=== PATIENT | male | born 1935 | race Caucasian/White ===

== ENCOUNTER 2021-02-11 12:06 | Day surgery (SDC) | payer MEDICARE ==
[2021-01-20 16:37] LABS: BASOPHILS # (AUTO) 0.1 X10'3 (0-0.2); BASOPHILS % (AUTO) 1.1 % (0-1); EOSINOPHILS # (AUTO) 0.2 X10'3 (0-0.9); LYMPHOCYTES # (AUTO) 2.1 X10'3 (1.1-4.8); LYMPHOCYTES % (AUTO) 25.3 % (21-51); MEAN CORPUSCULAR HEMOGLOBIN 29.8 PG (27.0-31.0); MEAN CORPUSCULAR HGB CONC 33.6 g/dL (33.0-36.5); MEAN CORPUSCULAR VOLUME 88.6 FL (78-98); MEAN PLATELET VOLUME 8.2 FL (7.4-10.4); MONOCYTES # (AUTO) 0.7 X10'3 (0-0.9); MONOCYTES % (AUTO) 8.6 % (2-12); PRE OP HEMATOCRIT 45.2 % (42.0-52.0); PRE OP HEMOGLOBIN 15.2 g/dL (14.0-17.9); PRE OP PLATELET COUNT 263 X10'3 (140-440); RED CELL DISTRIBUTION WIDTH 13.7 % (11.5-14.5)
[2021-01-20 17:03] LABS: ALBUMIN 4.3 G/DL (3.4-5.0); ALBUMIN/GLOBULIN RATIO 1.2 (1.1-1.5); ALKALINE PHOSPHATASE 57 IU/L (46-116); BLOOD UREA NITROGEN 18 MG/DL (7-18); BUN/CREATININE RATIO 15.7 (5.4-32.0); CALCIUM 8.7 MG/DL (8.5-10.1); CHLORIDE 106 MMOL/L (99-107); CREATININE 1.15 MG/DL (0.60-1.10); PRE OP ALT 24 U/L (30-65); PRE OP ANION GAP 12 (8-16); PRE OP AST 14 U/L (10-37); PRE OP BILIRUB, TOTAL 0.4 MG/DL (0.0-1.0); PRE OP GLUCOSE 101 MG/DL (70-104); PRE OP POTASSIUM 4.1 MMOL/L (3.4-5.1); PRE OP SODIUM 143 MMOL/L (135-145); TOTAL CARBON DIOXIDE 25.2 MMOL/L (24-32); eGFR 61 ML/MIN
[~2021-02-11] VITALS: Ht 160 cm; Wt 77.6 kg
[~2021-02-11 12:06] MED LIST: AMLO10TA53 PO; APIX5TAB3 PO; OXYB5TAB16 PO; SIMV-42 PO; SYN0.088T PO; TERA2CAP4 PO; TYLENOL; VITAMIN B-12; VITAMIN D3; cefazolin/dext.iso 2gm/100ml IV ONE; famotidine 20mg tablet PO ONE; ringers solution, lacted 1,000 ML IV SCH
[2021-02-11] MEDS ORDERED: BUPIVAcaine/PF 2.5mg/ml (0.25%) 10ml vial ONE (13:38)
[2021-02-11 14:13] LABS: BASOPHILS # (AUTO) 0.1 X10'3 (0-0.2); BASOPHILS % (AUTO) 1.5 % (0-1); EOSINOPHILS # (AUTO) 0.2 X10'3 (0-0.9); LYMPHOCYTES # (AUTO) 2.5 X10'3 (1.1-4.8); LYMPHOCYTES % (AUTO) 30.3 % (21-51); MEAN CORPUSCULAR HEMOGLOBIN 29.4 PG (27.0-31.0); MEAN CORPUSCULAR HGB CONC 33.3 g/dL (33.0-36.5); MEAN CORPUSCULAR VOLUME 88.3 FL (78-98); MEAN PLATELET VOLUME 8.9 FL (7.4-10.4); MONOCYTES # (AUTO) 0.6 X10'3 (0-0.9); MONOCYTES % (AUTO) 7.8 % (2-12); NEUTROPHILS # (AUTO) 4.8 X10'3 (1.8-7.7); NEUTROPHILS % (AUTO) 58.4 % (42-75); PRE OP HEMATOCRIT 44.6 % (42.0-52.0); PRE OP HEMOGLOBIN 14.8 g/dL (14.0-17.9); PRE OP PLATELET COUNT 209 X10'3 (140-440); RED BLOOD COUNT 5.05 X10'6 (4.70-6.10); RED CELL DISTRIBUTION WIDTH 13.6 % (11.5-14.5)
[2021-02-11] MEDS ORDERED: fentaNYL/PF 50MCG/1 ML 2ML syringe ONE (14:16)
[2021-02-11] MEDS ORDERED: hydrALAZINE 20mg/ml inj. IV PRN (14:20)
[2021-02-11] MEDS ORDERED: proCHLORperazine 10 MG/2 ml inj IV PRN (14:20)
[2021-02-11] MEDS ORDERED: meperidine/PF 25mg/ml syringe IV PRN ×3 (14:20)
[2021-02-11] MEDS ORDERED: acetaminophen 1,000mg/100ml IV 100 ML IV PRN (14:20)
[2021-02-11] MEDS ORDERED: ringers solution, lacted 1,000 ML IV SCH (14:20)
[2021-02-11] MEDS ORDERED: labetalol 20mg/4ml (5mg/ml) syringe IV PRN (14:20)
[2021-02-11] MEDS ORDERED: morphine 4 MG/ML inj SYRINge IV PRN (14:20)
[2021-02-11] MEDS ORDERED: ondansetron/PF 4mg/2ml inj IV PRN (14:20)
[2021-02-11] MEDS ORDERED: morphine 2 MG/ML inj. syringe IV PRN (14:20)
[2021-02-11] MEDS ORDERED: midazolam 1 mg/ML 2ml injection ONE (14:22)
[2021-02-11 14:23] LABS: ALBUMIN 4.1 G/DL (3.4-5.0); ALBUMIN/GLOBULIN RATIO 1.1 (1.1-1.5); ALKALINE PHOSPHATASE 51 IU/L (46-116); BLOOD UREA NITROGEN 15 MG/DL (7-18); BUN/CREATININE RATIO 13.9 (5.4-32.0); CALCIUM 8.5 MG/DL (8.5-10.1); CHLORIDE 106 MMOL/L (99-107); CREATININE 1.08 MG/DL (0.60-1.10); PRE OP ALT 25 U/L (30-65); PRE OP ANION GAP 12 (8-16); PRE OP AST 19 U/L (10-37); PRE OP BILIRUB, TOTAL 0.6 MG/DL (0.0-1.0); PRE OP GLUCOSE 86 MG/DL (70-104); PRE OP POTASSIUM 4.1 MMOL/L (3.4-5.1); PRE OP SODIUM 142 MMOL/L (135-145); TOTAL CARBON DIOXIDE 24.3 MMOL/L (24-32); TOTAL PROTEIN 7.7 G/DL (6.4-8.2); eGFR 65 ML/MIN
[2021-02-11] MEDS ORDERED: LIDOcaine 1% (10mg/ml) 2ml vial ONE (14:40)
--- NOTE | 2021-02-11 16:44 | NUR ---
PTS SURGERY WAS CANCELLED BY [facility] DUE TO LACK OF PROPER TESTING MACHINES FOR COVID SWAB, PT'S IV'S WERE D/CD AND PT WAS DISCHARGED WITH ALL BELONGINGS AND TOLD TO CALL DR BRINK'S OFFICE TO RESCHEDULE
[2021-02-15] MEDS ORDERED: [UNRECOGNIZED DRUG - OTHER] PO (12:21)
== END 2021-02-11 16:52 | disposition home or self-care (01) ==
LOC: PAS 12:06
PROVIDERS: ATTEND Orthopaedic Surgery Hand Surgery
DX: G56.02 Carpal tunnel syndrome, left upper limb (principal); Z53.8 Procedure and treatment not carried out for other reasons; I10 Essential (primary) hypertension; E03.9 Hypothyroidism, unspecified; E78.00 Pure hypercholesterolemia, unspecified; N40.0 Benign prostatic hyperplasia without lower urinary tract symptoms; M19.90 Unspecified osteoarthritis, unspecified site; Z20.822 Contact with and (suspected) exposure to COVID-19; Z79.899 Other long term (current) drug therapy; Z88.0 Allergy status to penicillin; Z87.891 Personal history of nicotine dependence; Z72.89 Other problems related to lifestyle; Z98.890 Other specified postprocedural states; Z98.41 Cataract extraction status, right eye; Z98.42 Cataract extraction status, left eye; Z86.73 Personal history of transient ischemic attack (TIA), and cerebral infarction without residual deficits; Z95.5 Presence of coronary angioplasty implant and graft
CPT/HCPCS: 36415; 80053; 85025; 87635; 93005; C9803; J2001; J2250; J3010; J3490; J7120

== ENCOUNTER 2021-02-18 08:32 | Day surgery (SDC) | payer MEDICARE ==
[~2021-02-18] VITALS: Ht 160 cm; Wt 77.1 kg
[2021-02-18] VITALS (8 sets, daily range): BP systolic 132–152; BP diastolic 70–76
[~2021-02-18 08:32] MED LIST changes: +BUPIVAcaine/PF 2.5mg/ml (0.25%) 10ml vial ONE; -VITAMIN D3; +[UNRECOGNIZED DRUG - OTHER] PO
[2021-02-18] MEDS ORDERED: LIDOcaine 0.5% (5mg/ml) 50ml vial ONE (09:57)
[2021-02-18] MEDS ORDERED: ringers solution, lacted 1,000 ML IV SCH (10:50)
[2021-02-18] MEDS ORDERED: proCHLORperazine 10 MG/2 ml inj IV PRN (10:50)
[2021-02-18] MEDS ORDERED: morphine 4 MG/ML inj SYRINge IV PRN (10:50)
[2021-02-18] MEDS ORDERED: meperidine/PF 25mg/ml syringe IV PRN ×3 (10:50)
[2021-02-18] MEDS ORDERED: ondansetron/PF 4mg/2ml inj IV PRN (10:50)
[2021-02-18] MEDS ORDERED: hydrALAZINE 20mg/ml inj. IV PRN (10:50)
[2021-02-18] MEDS ORDERED: morphine 2 MG/ML inj. syringe IV PRN (10:50)
[2021-02-18] MEDS ORDERED: labetalol 20mg/4ml (5mg/ml) syringe IV PRN (10:50)
[2021-02-18] MEDS ORDERED: acetaminophen 1,000mg/100ml IV 100 ML IV PRN (10:50)
[2021-02-18] MEDS ORDERED: fentaNYL/PF 50MCG/1 ML 2ML syringe ONE (11:33)
[2021-02-18] MEDS ORDERED: midazolam 1 mg/ML 2ml injection ONE (11:35)
[2021-02-18] MEDS ORDERED: propofol inj 20 ML IV ONE (11:42)
--- NOTE | 2021-02-18 12:03 | NUR ---
Received from OR via [facility] IN STABLE CONDITION , accompanied by Anesthesiologist and [employer] report given by [employer] AND Anesthesiolgist. Addendum: 02/18/21 at 1228 by Maricruz Baldwin RN Amended: Links added.
--- NOTE | 2021-02-18 13:13 | NUR ---
PATIENT DISCHARGED FROM PACU IN STABLE CONDITION AFTER WRITTEN AND VERBAL DISCHARGE INSTRUCTION GIVEN. PATIENT GAVE VERBAL UNDERSTANDING OF INSTRUCTIONS. PATIENT LEFT FACILITY VIA WHEELCHAIR WITH RN. Addendum: 02/18/21 at 1318 by Maricruz Baldwin RN Amended: Links added.
== END 2021-02-18 13:13 | disposition home or self-care (01) ==
LOC: PAS 08:32
PROVIDERS: ATTEND Orthopaedic Surgery Hand Surgery
DX: G56.02 Carpal tunnel syndrome, left upper limb (principal); I48.91 Unspecified atrial fibrillation; I10 Essential (primary) hypertension; N40.0 Benign prostatic hyperplasia without lower urinary tract symptoms; M19.90 Unspecified osteoarthritis, unspecified site; Z98.890 Other specified postprocedural states; Z79.899 Other long term (current) drug therapy; Z98.41 Cataract extraction status, right eye; Z98.42 Cataract extraction status, left eye; Z87.891 Personal history of nicotine dependence; Z95.5 Presence of coronary angioplasty implant and graft; Z88.0 Allergy status to penicillin; Z86.73 Personal history of transient ischemic attack (TIA), and cerebral infarction without residual deficits
CPT/HCPCS: 64721; 82948; J2001; J2250; J2704; J3010; J3490; Z7506; Z7512; A4215; J7120

== ENCOUNTER 2021-03-21 06:02 | Day surgery (SDC) | payer MEDICARE ==
[2021-03-11 15:09] LABS: ALBUMIN 4.2 G/DL (3.4-5.0); ALBUMIN/GLOBULIN RATIO 1.3 (1.1-1.5); ALKALINE PHOSPHATASE 64 IU/L (46-116); BLOOD UREA NITROGEN 20 MG/DL (7-18); BUN/CREATININE RATIO 15.5 (5.4-32.0); CALCIUM 8.7 MG/DL (8.5-10.1); CHLORIDE 107 MMOL/L (99-107); CREATININE 1.29 MG/DL (0.60-1.10); PRE OP ALT 27 U/L (30-65); PRE OP ANION GAP 13 (8-16); PRE OP AST 17 U/L (10-37); PRE OP BILIRUB, TOTAL 0.7 MG/DL (0.0-1.0); PRE OP GLUCOSE 144 MG/DL (70-104); PRE OP POTASSIUM 4.3 MMOL/L (3.4-5.1); PRE OP SODIUM 145 MMOL/L (135-145); TOTAL CARBON DIOXIDE 25.5 MMOL/L (24-32); TOTAL PROTEIN 7.5 G/DL (6.4-8.2); eGFR 53 ML/MIN
[2021-03-11 15:26] LABS: BASOPHILS # (AUTO) 0.1 X10'3 (0-0.2); BASOPHILS % (AUTO) 1.2 % (0-1); EOSINOPHILS # (AUTO) 0.2 X10'3 (0-0.9); EOSINOPHILS % (AUTO) 3.1 % (0-6); LYMPHOCYTES # (AUTO) 2.1 X10'3 (1.1-4.8); LYMPHOCYTES % (AUTO) 29.2 % (21-51); MEAN CORPUSCULAR HEMOGLOBIN 29.7 PG (27.0-31.0); MEAN CORPUSCULAR HGB CONC 32.9 g/dL (33.0-36.5); MEAN CORPUSCULAR VOLUME 90.4 FL (78-98); MEAN PLATELET VOLUME 8.6 FL (7.4-10.4); MONOCYTES # (AUTO) 0.5 X10'3 (0-0.9); MONOCYTES % (AUTO) 7.4 % (2-12); NEUTROPHILS # (AUTO) 4.2 X10'3 (1.8-7.7); NEUTROPHILS % (AUTO) 59.1 % (42-75); PRE OP HEMOGLOBIN 14.8 g/dL (14.0-17.9); PRE OP PLATELET COUNT 212 X10'3 (140-440); RED BLOOD COUNT 4.98 X10'6 (4.70-6.10); RED CELL DISTRIBUTION WIDTH 13.7 % (11.5-14.5)
[~2021-03-21] VITALS: Ht 160 cm; Wt 78.8 kg
[~2021-03-21 06:02] MED LIST changes: -BUPIVAcaine/PF 2.5mg/ml (0.25%) 10ml vial ONE; -TYLENOL; -VITAMIN B-12
[2021-03-21] MEDS ORDERED: BUPIVAcaine/PF 2.5mg/ml (0.25%) 10ml vial ONE (06:48)
[2021-03-21 07:10] VITALS: BP 149/72
[2021-03-21 07:16] VITALS: BP 149/72
[2021-03-21 07:21] VITALS: BP 149/72
[2021-03-21] MEDS ORDERED: ondansetron/PF 4mg/2ml inj IV PRN (07:50)
[2021-03-21] MEDS ORDERED: morphine 4 MG/ML inj SYRINge IV PRN (07:50)
[2021-03-21] MEDS ORDERED: proCHLORperazine 10 MG/2 ml inj IV PRN (07:50)
[2021-03-21] MEDS ORDERED: ringers solution, lacted 1,000 ML IV SCH (07:50)
[2021-03-21] MEDS ORDERED: morphine 2 MG/ML inj. syringe IV PRN (07:50)
[2021-03-21] MEDS ORDERED: meperidine/PF 25mg/ml syringe IV PRN ×3 (07:50)
[2021-03-21] MEDS ORDERED: fentaNYL/PF 50MCG/1 ML 2ML syringe ONE (08:13)
[2021-03-21] MEDS ORDERED: midazolam 1 mg/ML 2ml injection ONE (08:13)
[2021-03-21] MEDS ORDERED: LIDOcaine 0.5% (5mg/ml) 50ml vial ONE (08:18)
[2021-03-21 08:45] VITALS: BP 147/83
--- NOTE | 2021-03-21 08:45 | NUR ---
Received from OR via , accompanied by Anesthesiologist and report given by Anesthesiolgist. PATIENT A&OX4, DENIES PAIN, V/S WNL, NEUROVASCULAR CHECKS INTACT, DRESSING TO RUE CDI, 20G LUE , BG 130.
[2021-03-21 08:55] VITALS: BP 139/82
[2021-03-21 09:05] VITALS: BP 141/76
--- NOTE | 2021-03-21 09:15 | NUR ---
PATIENT A&OX4, DENIES PAIN, V/S WNL, NEUROVASCULAR CHECKS INTACT, DRESSING TO RUE CDI, 2OG WILBERE D/C,. I HAVE REVIEWED D/C INSTRUCTIONS WITH PATIENT AND AND THEY HAVE VERBALIZED UNDERSTANDING. PATIENT D/C HOME WITH ALL BELONGINGS AND GAVE TRANSPORT.
== END 2021-03-21 09:15 | disposition home or self-care (01) ==
LOC: PAS 06:02
PROVIDERS: ATTEND Orthopaedic Surgery Hand Surgery
DX: G56.01 Carpal tunnel syndrome, right upper limb (principal); I10 Essential (primary) hypertension; I48.91 Unspecified atrial fibrillation; E03.9 Hypothyroidism, unspecified; N40.0 Benign prostatic hyperplasia without lower urinary tract symptoms; M19.90 Unspecified osteoarthritis, unspecified site; Z95.5 Presence of coronary angioplasty implant and graft; Z88.0 Allergy status to penicillin; Z79.899 Other long term (current) drug therapy; Z72.89 Other problems related to lifestyle; Z87.891 Personal history of nicotine dependence; Z98.890 Other specified postprocedural states; Z98.41 Cataract extraction status, right eye; Z98.42 Cataract extraction status, left eye; Z20.822 Contact with and (suspected) exposure to COVID-19
CPT/HCPCS: 36415; 64721; 80053; 82948; 85025; J2001; J2250; J3010; J3490; U0003; U0005; Z7506; Z7512; A4215; J7120